=== PATIENT | male | born 1985 | race Caucasian/White ===

== ENCOUNTER 2020-02-09 21:22 | Emergency (ER) | payer BC ==
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
[2020-02-09] MEDS ORDERED: LORAZEPAM 1 MG TABLET PO ONE (22:06)
[2020-02-09 22:29] LABS: ABSOLUTE BASOPHILS # (AUTO) 0.1 10^3/uL (0.0-0.2); ABSOLUTE LYMPHOCYTES (AUTO) 2.1 10^3/uL (0.5-4.7); ABSOLUTE MONOCYTES (AUTO) 0.9 10^3/uL (0.1-1.4); ABSOLUTE NEUT (AUTO) 8.1 10^3/uL (1.7-8.2); BASOPHILS % (AUTO) 0.5 % (0-2); EOSINOPHILS % (AUTO) 0.3 % (0-6); HEMATOCRIT 42.4 % (37.9-51.0); HEMOGLOBIN 14.9 g/dL (13.5-17.0); LYMPHOCYTES % (AUTO) 18.7 % (13-45); MEAN CORPUSCULAR HEMOGLOBIN 32.2 pg (27.0-33.4); MEAN CORPUSCULAR HGB CONC 35.1 g/dL (32.0-36.0); MEAN CORPUSCULAR VOLUME 92 fl (80-97); MONOCYTES % (AUTO) 8.4 % (3-13); PLATELET COUNT 238 10^3/uL (150-450); RED BLOOD COUNT 4.63 10^6/uL (4.35-5.55); RED CELL DISTRIBUTION WIDTH 12.8 % (11.5-14.0); SEGMENTED NEUTROPHILS % (AUTO) 72.1 % (42-78); TOTAL CELLS COUNTED % (AUTO) 100 %; WHITE BLOOD COUNT 11.2 10^3/uL (4.0-10.5)
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
--- NOTE | 2020-02-09 22:48 | RADIOLOGY REPORT (SQ) ---
EXAM DESCRIPTION: Site: RP: XR CHEST 1 VIEW CLINICAL HISTORY: 34 years Male; suicidal ideation with self harm; COMPARISON: None. FINDINGS: Lungs: Lungs are clear, with no focal infiltrate, pneumothorax, or pleural effusion. Mediastinum: Mediastinum is within normal limits for this positioning. Bones: Bony structures are unremarkable. IMPRESSION: 1. No acute pulmonary findings.
[2020-02-09 22:51] LABS: ALBUMIN 4.6 g/dL (3.5-5.0); ALKALINE PHOSPHATASE 70 U/L (38-126); ANION GAP 12 (5-19); ASPARTATE AMINO TRANSFERASE 37 U/L (17-59); BILIRUBIN,DIRECT 0.1 mg/dL (0.0-0.4); BILIRUBIN,TOTAL 1.1 mg/dL (0.2-1.3); BLOOD UREA NITROGEN 8 mg/dL (7-20); CARBON DIOXIDE 25 mmol/L (22-30); CHLORIDE 101 mmol/L (98-107); GLUCOSE 122 mg/dL (75-110); POTASSIUM 3.6 mmol/L (3.6-5.0); TOTAL PROTEIN 7.4 g/dL (6.3-8.2)
--- NOTE | 2020-02-09 22:55 | EKG REPORT ---
SEVERITY:- NORMAL ECG - SINUS RHYTHM : Confirmed by: José Luis Bolden 09-Feb-2020 22:53:45
[2020-02-09 22:56] LABS: ACETAMINOPHEN < 10 ug/mL (10-30); ALCOHOL < 10 mg/dL (NONE DETECTED); SALICYLATE < 1.0 mg/dL (2.0-20.0)
[2020-02-10 21:57] LABS: APPEARANCE,URINE CLEAR; BILIRUBIN,URINE NEGATIVE (NEGATIVE); COLOR,URINE AMBER; GLUCOSE, URINE NEGATIVE (NEGATIVE); KETONES,URINE NEGATIVE (NEGATIVE); LEUKOCYTE ESTERASE,URINE NEGATIVE (NEGATIVE); NITRITE,URINE NEGATIVE (NEGATIVE); PROTEIN,URINE NEGATIVE (NEGATIVE); URINE SPECIFIC GRAVITY 1.027
[2020-02-10 22:10] LABS: URINE AMPHETAMINES SCREEN NEGATIVE; URINE BARBITURATES SCREEN NEGATIVE; URINE BENZODIAZEPINES SCREEN NEGATIVE; URINE COCAINE SCREEN NEGATIVE; URINE MARIJUANA (THC) SCREEN NEGATIVE; URINE METHADONE SCREEN NEGATIVE; URINE PHENCYCLIDINE SCREEN NEGATIVE
[2020-02-11] MEDS: CEPHALEXIN 500 MG CAPSULE PO SCH ×2 (09:15→18:01)
[2020-02-11] MEDS: BACITRACIN ZINC OINTMENT 15 GM TP SCH ×2 (09:16→18:03)
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
[2020-02-11] MEDS ORDERED: NICOTINE 7 MG/24 HR PATCH.TD24 TD ONE (14:22)
[2020-02-11 20:23] VITALS: BP 125/70
--- NOTE | 2020-02-16 16:23 | PSYCHOLOGICAL NOTE ---
Psych Note - Psych Note Date seen by psych provider: 02/11/20 Time seen by psych provider: 13:43 Psych Note: Evaluation with patient from [id number] and [id number]. Imani ([phone]) collateral and informed of plan of care for discharge with patient's consent to keep her aware and part of plan from [id number]. Presenting Problem: FULL Involuntary Commitment due to suicidal ideation and cutting left wrist. Clinical Presentation: Family Discord Concerns patient is trying to get out of legal issues Suicidal Thoughts with attempt a couple days prior to coming to hospital Impression/Plan: Patient is cleared from acute psychiatric services. Recommendation to rescind FULL Involuntary Commitment. Patient denied current suicidal and homicidal ideation. He denied previous attempts at hurting/harming/trying to kill self. He identified "I left that space Sunday, it was a bad space, now I feel better, I have had a chance to experience how this works and see other people who are really sick, I have 4 beautiful children, I was stupid." This shows Hope and future/forward thinking. He identified his thoughts and feelings started Sunday and progressed through Sunday. He acknowledged he cut a couple days prior to coming to the hospital. He denied current mental health treatment, said he was interested in linkage and commented "now is a better time than any to start," noted he had been out of the [facility] since 2008 and is not [facility] connected, and noted his is also [facility] so knows about services and what to do. He denied alcohol and drug use. He stated they reside in [place], [place] just outside of [place]. confirmed where they reside. She was included in plan of care and knew patient was in the hospital. It was agreed patient would call her once he was to his hotel where he has been staying locally. Patient stated law enforcement took the gun he purchased when he voluntarily handed it over to them and he does not have any other firearms. Provided patient with the two local mobile crisis numbers and [facility] contact information for local voluntary inpatient treatment. aware patient being provided these local resources. Both patient and informed he needs to link to [facility] or other provider in [place], [place] once home (noted he could likely go anywhere with his reported [facility] insurance). Patient had euthymic mood with congruent affect. No observed psychosis given good eye contact, carrying on dialogue conversation and being active participant in treatment planning. Consulted with Dr. Thomas regarding the management and care of patient. ED physician in agreement with recommendations.
== END 2020-02-11 19:39 | disposition home or self-care (01) ==
LOC: ER 21:22
DX: S61.512A Laceration without foreign body of left wrist, initial encounter (principal); S50.812A Abrasion of left forearm, initial encounter; X78.8XXA Intentional self-harm by other sharp object, initial encounter; R63.4 Abnormal weight loss; F41.9 Anxiety disorder, unspecified; R53.1 Weakness; R63.0 Anorexia; F17.210 Nicotine dependence, cigarettes, uncomplicated; Z62.820 Parent-biological child conflict
CPT/HCPCS: 93005; 99285; 36415; 80307 ×4; 85025; 80053; 81001; 71045; 93010; J3490 ×2